=== PATIENT | male | born 1965 | race Caucasian/White ===

== ENCOUNTER 2021-05-13 14:22 | Emergency (ER) | payer SELFPAY ==
[~2021-05-13] VITALS: Ht 167.6 cm; Wt 81.8 kg
[2021-05-13 14:34] VITALS: BP 164/98
[2021-05-13 15:09] LABS: BASO # 0.1 x10^3/uL (0.0-0.2); BASO % 1 % (0-3); EOS # 0.1 x10^3/uL (0.0-0.7); EOS % 1 % (0-3); HEMATOCRIT 43.8 % (39.0-53.0); HEMOGLOBIN 15.4 g/dL (13.0-17.5); LYMPH # 1.4 x10^3/uL (1.0-4.8); LYMPH % 23 % (24-48); MEAN CORPUSCULAR HEMOGLOBIN 34 pg (25-35); MEAN CORPUSCULAR HGB CONC 35 g/dL (31-37); MEAN CORPUSCULAR VOLUME 96 fL (79-100); MONO # 0.7 x10^3/uL (0.0-1.1); MONO % 12 % (0-9); NEUT # 3.8 x10^3/uL (1.8-7.7); NEUT % 63 % (31-73); PLATELET COUNT 148 x10^3/uL (140-400); RED BLOOD COUNT 4.56 x10^6/uL (4.30-5.70); RED CELL DISTRIBUTION WIDTH 13.7 % (11.5-14.5); WHITE BLOOD COUNT 6.1 x10^3/uL (4.0-11.0)
[2021-05-13 15:13] LABS: CALCIUM 8.9 mg/dL (8.5-10.1); CREATININE 1.1 mg/dL (0.7-1.3); POTASSIUM 3.2 mmol/L (3.5-5.1)
[2021-05-13 15:21] LABS: ALBUMIN/GLOBULIN RATIO 1.1 (1.0-1.7); TOTAL BILIRUBIN 0.9 mg/dL (0.2-1.0); TOTAL PROTEIN 7.5 g/dL (6.4-8.2)
--- NOTE | 2021-05-13 15:39 | RAD ---
EXAM: 2 views of the right elbow DATE: 05/13/2021 3:00 PM INDICATION: Reason: trauma / Spl. Instructions: / History: COMPARISON: No Prior FINDINGS: No elbow joint effusion. No acute fracture or dislocation. No significant soft tissue swelling. Radio paque densities at the lateral aspect of the right elbow a represent retained foreign bodies or be on the skin surface. IMPRESSION: No acute fracture or dislocation. Radiopaque densities at the lateral aspect of the right elbow may represent retained foreign bodies o r be on the skin surface. Electronically signed by: Julio C Metz MD (05/13/2021 3:36 PM) [facility]
--- NOTE | 2021-05-13 16:07 | RAD ---
Exam: CT head and maxillofacial without contrast INDICATION: Trauma, new onset seizure TECHNIQUE: Sequential axial images through the head and face were obtained without the administration of IV contrast. Exposure: One or more of the following in the visualized dose reduction techniques were utilized for this examination: 1. Automated exposure control 2. Adjustment of the MA and/or KV according to patient size 3. Use of iterative of reconstructive technique Comparisons: None FINDINGS: Head: No focal parenchymal lesion or hemorrhage is identified. There is no midline shift or sulcal effaceme nt. Patchy hypodensity in the periventricular white matter. No acute vascular territory infarction is janay ntified. Hill-white distinction is preserved. The ventricular system is within normal limits without compression hydrocephalus. The basal cisterns are well maintained. Face: The visualized portions of the paranasal sinuses and mastoid air cells are well-pneumatized. No acute fractures. Globes and orbital contents are normal. IMPRESSION: 1. Mild small vessel ischemic change, technically age indeterminate without recent prior imaging 2. No acute traumatic injury identified at the face. Electronically signed by: Miles Ellis MD (05/13/2021 4:05 PM) [facility]
[2021-05-13] MEDS ORDERED: IV NORMAL SALINE 1000ML BAG 1,000 ML IV ONE (16:30)
[2021-05-13] MEDS ORDERED: levETIRAcetam 1,000 MG in IV DEXTROSE 5% 100ML 100 ML IV ONE (16:30)
[2021-05-13] MEDS ORDERED: DIPH,PERTUSS(ACELL),TET VAC/PF 0.5 ML SYRINGE. VAX IM ONE (16:30)
--- NOTE | 2021-05-13 16:43 | ED.ADGEN ---
Past Medical History Past Medical History: No Pertinent History Past Surgical History: No Surgical History Smoking Status: Current Every Day Smoker Alcohol Use: Heavy Additional Information: USUALLY HAS X3 SINGLE WIS[place] AND COKE IN THE EVENING AROUND 1700. LAST DRINK WAS YESTERDAY 05/12/2021. General Adult EDM: Chief Complaint: SEIZURE HPI: HPI: Patient is a 55-year-old male who presents to the emergency room after having a witnessed 15-second first-time seizure. Patient was walking out to his scooter when this occurred. Patient states he does remember waking up this morning but does not remember trying to leave the house. He does not remember anything about the incident. He has some minor pain in his elbow on the right side. He denies any, headache. He states he does feel weak and dizzy. He has never had a seizure previously. He states that he does typically drink every day, but has not had any changes in his drinking in the last 4 months. He has had sleep deprivation over this last weekend and has not slept more than a couple hours for the last 3 nights. Review of Systems: Review of Systems: Complete ROS is negative unless otherwise documented in HPI Current Medications: Current Medications Medications (Trade) Dose Ordered Sig/Heri Start Time Stop Time Status Last Admin Dose Admin Diphtheria/ Tetanus/Acell Pertussis (ADACEL TDap SYRINGE) 0.5 ml ONCE ONCE 05/13/21 16:30 05/13/21 16:31 DC Levetiracetam 1000 mg/Dextrose 110 ml @ 440 mls/hr 1X ONCE 05/13/21 16:30 05/13/21 16:44 DC 05/13/21 17:08 440 MLS/HR Sodium Chloride 1,000 ml @ 1,000 mls/hr 1X ONCE 05/13/21 16:30 05/13/21 17:29 DC 05/13/21 17:08 1,000 MLS/HR Allergies: Allergies: Allergies Coded Allergies Type Severity Reaction Last Updated Verified No Known Drug Allergies 05/13/21 No Physical Exam: PE: General: Awake, alert, NAD. Well Nourished, well hydrated. Cooperative HEENT: Abrasions to side of face, EOMI, PERRL, airway patent, moist oral mucosa Neck: Supple, trachea midline Respiratory: CTA bilaterally, normal effort, no wheezing/crackles CV: RRR, no murmur, cap refill <2 GI: Soft, nondistended, nontender, no masses MSK: No obvious deformities, abrasions to right elbow Skin: Warm, dry Neuro: A&O x3, speech NL, 5/5 strength in BUE/BLE distally and proximally, CN 2- 12 intact, cerebellar testing normal Psych: Normal affect, normal mood, not suicidal or homicidal Current Patient Data: Labs: Laboratory Tests Test 05/13/21 14:51 White Blood Count 6.1 x10^3/uL (4.0-11.0) Red Blood Count 4.56 x10^6/uL (4.30-5.70) Hemoglobin 15.4 g/dL (13.0-17.5) Hematocrit 43.8 % (39.0-53.0) Mean Corpuscular Volume 96 fL (79-100) Mean Corpuscular Hemoglobin 34 pg (25-35) Mean Corpuscular Hemoglobin Concent 35 g/dL (31-37) Red Cell Distribution Width 13.7 % (11.5-14.5) Platelet Count 148 x10^3/uL (140-400) Neutrophils (%) (Auto) 63 % (31-73) Lymphocytes (%) (Auto) 23 % (24-48) L Monocytes (%) (Auto) 12 % (0-9) H Eosinophils (%) (Auto) 1 % (0-3) Basophils (%) (Auto) 1 % (0-3) Neutrophils # (Auto) 3.8 x10^3/uL (1.8-7.7) Lymphocytes # (Auto) 1.4 x10^3/uL (1.0-4.8) Monocytes # (Auto) 0.7 x10^3/uL (0.0-1.1) Eosinophils # (Auto) 0.1 x10^3/uL (0.0-0.7) Basophils # (Auto) 0.1 x10^3/uL (0.0-0.2) Sodium Level 136 mmol/L (136-145) Potassium Level 3.2 mmol/L (3.5-5.1) L Chloride Level 96 mmol/L (98-107) L Carbon Dioxide Level 22 mmol/L (21-32) Anion Gap 18 (6-14) H Blood Urea Nitrogen 14 mg/dL (8-26) Creatinine 1.1 mg/dL (0.7-1.3) Estimated GFR (Cockcroft-Gault) 69.0 BUN/Creatinine Ratio 13 (6-20) Glucose Level 153 mg/dL (70-99) H Calcium Level 8.9 mg/dL (8.5-10.1) Total Bilirubin 0.9 mg/dL (0.2-1.0) Aspartate Amino Transferase (AST) 46 U/L (15-37) H Alanine Aminotransferase (ALT) 66 U/L (16-63) H Alkaline Phosphatase 82 U/L (46-116) Total Protein 7.5 g/dL (6.4-8.2) Albumin 4.0 g/dL (3.4-5.0) Albumin/Globulin Ratio 1.1 (1.0-1.7) Laboratory Tests 05/13/21 14:51 Laboratory Tests 05/13/21 14:51 Vital Signs: Vital Signs Date Time Temp Pulse Resp B/P (MAP) Pulse Ox O2 Delivery O2 Flow Rate FiO2 05/13/21 14:34 98.8 95 20 164/98 (120) Room Air 98.8 EKG: EKG: [] Heart Score: C/O Chest Pain: N/A Risk Factors: Risk Factors: DM, Current or recent (<one month) smoker, HTN, HLP, family history of CAD, obesity. Risk Scores: Score 0 - 3: 2.5% MACE over next 6 weeks - Discharge Home Score 4 - 6: 20.3% MACE over next 6 weeks - Admit for Clinical Observation Score 7 - 10: 72.7% MACE over next 6 weeks - Early Invasive Strategies Radiology/Procedures: Radiology/Procedures: [] Course & Med Decision Making: Course & Med Decision Making Pertinent Labs and Imaging studies reviewed. (See chart for details) Patient is a 55yo male who presents to the ED after an episode that is concerning for first time seizure. Patient has a normal neurologic exam and is b ack at their baseline. Patient does not have neck stiffness, fever. He does have a history of alcoholism however has not had a change in his drinking. He did have some minor trauma during the seizure. Upon reviewing patient's history and exam, menginitis, encephalitis, stroke are unlikely. BMP, magnesium level, EKG, and CT head were ordered to r/o electrolyte abnormalities, intracranial bleed, tumor, or arrhythmia leading to cardiac syncope. CT of the face also done to rule out traumatic injury. Work up is normal at this time and etiology of seizure is thought to be related to sleep deprivation. At this time, patient is back to their baseline. Tetanus was updated patient was given directions not to drive or use heavy machinery until cleared by neurology. Patient was given resources to follow up with neurology. Patient's test results and vitals while in the ED were fully reviewed and discussed with the patient. Patient is stable and at this time does not need admission to the hospital. We have discussed strict return precautions and the importance of following up with their Primary Care Physician. Patient stated understanding and was given an opportunity to ask any questions. Patient is in agreement with plan. Dragon Disclaimer: Dragon Disclaimer: This electronic medical record was generated, in whole or in part, using a voice recognition dictation system. Departure Departure Impression: Primary Impression: Seizure Additional Impressions: Closed head injury Facial abrasion Disposition: HOME / SELF CARE / HOMELESS Condition: STABLE Referrals: NO PCP (PCP) MANJU RANDLE MD Patient Instructions: Head Injury, Adult, Seizure, Adult Problem Qualifiers JORGE IQBAL MD May 13, 2021 16:43
[2021-05-13 17:27] LABS: BILIRUBIN,URINE MODERATE (NEG); CLARITY,URINE CLEAR; COLOR,URINE AMBER; NITRITE,URINE NEGATIVE (NEG); PH,URINE 6.5 (<5.0-8.0); PROTEIN,URINE 100 mg/dL (NEG-TRACE)
[2021-05-13 17:46] LABS: HYALINE CASTS, URINE MODERATE /HPF
[2021-05-13 17:47] LABS: BACTERIA,URINE 0 /HPF (0-FEW)
== END 2021-05-13 19:15 | disposition home or self-care (01) ==
LOC: ER 14:22
DX: S00.81XA Abrasion of other part of head, initial encounter (principal); S50.311A Abrasion of right elbow, initial encounter; F17.200 Nicotine dependence, unspecified, uncomplicated; F10.20 Alcohol dependence, uncomplicated; Y90.9 Presence of alcohol in blood, level not specified; X58.XXXA Exposure to other specified factors, initial encounter; Y93.89 Activity, other specified; Y92.89 Other specified places as the place of occurrence of the external cause; Y99.8 Other external cause status
CPT/HCPCS: 36415; 70450; 70486; 73070; 80053; 81001; 85025; 96365; 96366; 99285; J1953; J7030; J7060